=== PATIENT | male | born 1945 | race African-American/Black ===

== ENCOUNTER 2023-05-16 19:45 | Emergency (ER) | payer OTHER ==
[~2023-05-16] VITALS: Ht 180.3 cm; Wt 75.0 kg
[2023-05-16 19:50] VITALS: O2SAT 100
[2023-05-16 21:39] LABS: CLARITY URINE TURBID (CLEAR); COLOR URINE DARK YELLOW (YELLOW); GLUCOSE URINE NEGATIVE (NEGATIVE); KETONES URINE 1+ (NEGATIVE); LEUKOCYTE ESTERASE URINE 2+ (NEGATIVE); NITRITE URINE POSITIVE (NEGATIVE); OCCULT BLOOD URINE 3+ (NEGATIVE); PROTEIN URINE 3+ (NEGATIVE)
[2023-05-16 21:39] LABS: BASOPHILS % 0.3 % (0.0-2.0); EOSINOPHILS % 0.2 % (0.0-5.0); HEMATOCRIT. 28.4 % (42.0-52.0); HEMOGLOBIN. 9.5 g/dL (14.0-18.0); LYMPHOCYTES % 9.7 % (20.0-50.0); MEAN CORPUSCULAR HGB CONC 33.4 g/dL (31.0-37.0); MEAN CORPUSCULAR VOLUME 83.6 fL (80.0-94.0); MONOCYTES % 9.6 % (2.0-8.0); NEUTROPHILS % 80.2 % (40.0-76.0); PLATELET 283 x1000/uL (130-400); RED CELL DISTRIBUTION WIDTH 15.9 % (11.6-14.6); WHITE BLOOD COUNT 13.1 x1000/uL (4.5-11.0)
[2023-05-16 21:52] LABS: ALANINE AMINOTRANSFERASE < 7 IU/L (10-49); ALBUMIN 2.5 g/dL (3.2-4.8); ASPARTATE AMINOTRANSFERASE 19 IU/L (<34); BILIRUBIN TOTAL 0.6 mg/dL (0.1-1.0); CALCIUM 8.2 mg/dL (8.7-10.4); CARBON DIOXIDE 23 mEq/L (21-32); CHLORIDE 110 mEq/L (98-107); CREATININE 0.6 mg/dL (0.6-1.3); GLUCOSE 124 mg/dL (70-105); POTASSIUM 3.4 mEq/L (3.5-5.1); PROTEIN TOTAL 5.2 g/dL (6.0-8.3); SODIUM 141 mEq/L (136-145); UREA NITROGEN BLOOD 14 mg/dL (9-23)
[2023-05-16 21:53] LABS: WBC URINE 15-25 /hpf (0-2)
[2023-05-16 21:54] LABS: BACTERIA URINE 1+; RBC URINE 25-50 /hpf (0-2); SQUAMOUS EPITHELIAL CELL URINE 1+ /lpf (RARE/1+)
[2023-05-17] MEDS ORDERED: MISCELLANEOUS MEDICATION 1 EA PO ONE (01:00)
[2023-05-17] MEDS: SODIUM CHLORIDE 0.9% 1,000 ML IV NR (01:24)
[2023-05-17] MEDS: LEVOFLOXACIN 500MG TABLET PO NR (01:28)
[2023-05-17] MEDS: ACETAMINOPHEN 325MG TABLET PO ONE (02:30)
[2023-05-17] MEDS: HYDRALAZINE 20MG/ML VIAL IV NR (06:15)
[2023-05-17] MEDS: SODIUM CHLORIDE 0.9% 1,000 ML IV ONE (06:35)
[2023-05-17 07:15] VITALS: BP 160/82; PULSE 114; RESP 15; TEMP 98.2
== END 2023-05-17 07:26 | disposition short-term general hospital (02) ==
LOC: ER 19:45
DX: T83.022A Displacement of nephrostomy catheter, initial encounter (principal); A41.9 Sepsis, unspecified organism; N39.0 Urinary tract infection, site not specified; F19.90 Other psychoactive substance use, unspecified, uncomplicated; Z85.9 Personal history of malignant neoplasm, unspecified; Z20.822 Contact with and (suspected) exposure to COVID-19; X58.XXXA Exposure to other specified factors, initial encounter; Y93.89 Activity, other specified; Y92.89 Other specified places as the place of occurrence of the external cause; Y99.8 Other external cause status
CPT/HCPCS: 80053; 81003; 85025; 87086; 36415; 74176; 96361; 96374; 99291; 83605; 87040; 87426; J0360; J7030; Z7610